=== PATIENT | male | born 1975 | race American Indian/Alaskan Native ===

== ENCOUNTER 2017-01-26 07:01 | Day surgery (SDC) | payer BC ==
[2017-01-26] MEDS ORDERED: NACL 0.9% 1000 ML 1,000 ML IV SCH (08:00)
[2017-01-26 08:19] LABS: Blood Urea Nitrogen 16 mg/dL (9-20)
[2017-01-26] MEDS ORDERED: HEPARIN 10,000 UNITS/10 ML ONE (09:35)
[2017-01-26] MEDS ORDERED: CALAN ONE (09:35)
[2017-01-26] MEDS ORDERED: HEPARIN/NS 5000 UNIT/500ML(CATH LAB) 1,000 ML IR ONE (09:35)
[2017-01-26] MEDS ORDERED: SUBLIMAZE ONE (09:36)
[2017-01-26] MEDS ORDERED: XYLOCAINE 2% INFILTRATI ONE (09:36)
[2017-01-26] MEDS ORDERED: NITROGLYCERIN SYRINGE 3 ML ONE (09:36)
[2017-01-26] MEDS ORDERED: VERSED ONE (09:36)
--- NOTE | 2017-01-26 10:41 | Short Stay Summary ---
Short Stay Documentation Date of service: 01/26/17 - History H&P: obtained from office - Allergies and Medications Current Medications: Allergies No Known Allergies Allergy (Verified 01/26/17 07:27) Home Medications Medication Instructions Recorded Confirmed Last Taken Type Aspirin [Adult Low Dose Aspirin EC] 81 mg PO DAILY 01/26/17 01/26/17 01/25/17 History AtorvaSTATin [Lipitor] 40 mg PO DAILY 01/26/17 01/26/17 01/25/17 History Clopidogrel Bisulfate [Plavix] 75 mg PO DAILY 01/26/17 01/26/17 01/25/17 History Insulin Glargine [Lantus] 24 unit SUB-Q QHS 01/26/17 01/26/17 01/25/17 History Insulin Lispro [HumaLOG VIAL] 4 - 8 units SQ AC 01/26/17 01/26/17 01/25/17 History metFORMIN [Glucophage] 500 mg PO BID 01/26/17 01/26/17 01/25/17 History Active Medications Sodium Chloride (Nacl 0.9% 1000 Ml) 1,000 mls @ 100 mls/hr IV DIRECT WEI Last Admin: 01/26/17 08:05 Dose: 100 mls/hr - Brief post op/procedure progress note Date of procedure: 01/26/17 Pre-op diagnosis: claudication Post-op diagnosis: same Procedure: see report Anesthesia: local Estimated blood loss: none Pathology: none - Disposition Condition at discharge: Good - Discharge Diagnoses (1) Diabetes mellitus Status: Acute Qualifiers: Diabetes mellitus type: type 1 Diabetes mellitus complication status: with circulatory complication Diabetes mellitus complication detail: with peripheral angiopathy without gangrene Diabetic retinopathy severity: D Proliferative retinopathy type: P Diabetes mellitus macular edema: D Diabetes mellitus vermin exterminator insulin use: D Laterality: L Chronic kidney disease stage: C Qualified Code(s): E10.51 - Type 1 diabetes mellitus with diabetic peripheral angiopathy without gangrene (2) Hypertension Status: Chronic Qualifiers: Hypertension type: essential hypertension Qualified Code(s): I10 - Essential (primary) hypertension (3) Hyperlipemia, mixed Status: Chronic (4) PAD (peripheral artery disease) Status: Chronic (5) Claudication of left lower extremity Status: Chronic Short Stay Discharge Plan Activity: advance as tolerated Wound: keep clean and dry Special Instructions: hold Metformin (for two days ) Follow up with: SHAYNE LOWE MD [Staff Physician] - 7 Days
[2017-01-26 13:17] VITALS: BP 118/62
--- NOTE | 2017-01-26 13:26 | Cardiac Catherization Report ---
Peripheral angiogram done by Dr. Pena on 01/26/2017. REFERRING PHYSICIAN: ____. CLINICAL INFORMATION: A 41-year-old -[place] gentleman with diabetes, hypertension and hyperlipidemia who has been having claudication symptoms for several years and ultrasound findings occlusive disease in his left SFA. The patient has also found renal ____ and is here for a peripheral angiogram. Peripheral angiogram performed on the right radial artery, sterile technique, local anesthesia, 6-Icelandic radial sheath inserted. A pigtail catheter was placed in the distal abdominal aorta. FINDINGS: 1. Distal abdominal patent and normal. 2. Bilateral common iliac arteries are patent. Bilateral internal, external iliac arteries are patent. 2. Bilateral profunda and bilateral common femoral arteries are patent. 3. Right SFA is normal from proximally and distally. The popliteal was patent with 3-vessel runoff anterior tibial, TP trunk, peroneal and posterior tibial. 4. Left SFA proximal is a large vessel is patent and proximal mid is patent and distal after the adductor canal above the popliteal has a 100% lesion with collaterals, short occlusion around 30 mm and feeds into the distal, reconstitutes in the proximal mid popliteal. Popliteal was patent with 3-vessel runoff. 5. 5-Icelandic catheter. A pigtail was taken over guidewire, 6-Icelandic radial sheath was discontinued. Radial dressing applied. No hematoma. No bleeding. SUMMARY: 1. Bilateral common iliacs and external and internal iliacs patent and aorta patent. 2. Right SFA with 3-vessel runoff patent. 3. Left SFA distal SFA and the proximal popliteal 100%, 30 mmHg occlusion with collateralization with 3-vessel runoff. 4. We will stage patient for FACILITIES CLERK of the left distal SFA and popliteal. Discussed this in detail with the patient and patient's family. JOB# [id number] SUAD/VAMSHI BAKER
== END 2017-01-26 13:30 | disposition home or self-care (01) ==
LOC: OPU 07:01
PROVIDERS: ATTEND Internal Medicine
DX: I70.212 Atherosclerosis of native arteries of extremities with intermittent claudication, left leg (principal); E11.9 Type 2 diabetes mellitus without complications; I10 Essential (primary) hypertension; E78.2 Mixed hyperlipidemia; Z79.4 Long term (current) use of insulin; Z79.899 Other long term (current) drug therapy; Z82.49 Family history of ischemic heart disease and other diseases of the circulatory system
CPT/HCPCS: 36200; 36415; 75625; 75716; 82565; 84520; 96360; 96361; C1894; J1644; J2250; J3010; J7030; Q9967